=== PATIENT | male | born 1965 | race Caucasian/White ===

== ENCOUNTER 2016-09-29 11:08 | Inpatient (IN) | payer BC ==
[~2016-09-29] VITALS: Ht 170.2 cm; Wt 122.6 kg
[2016-09-29 12:45] LABS: BASOPHIL % 0.5 % (0-2); PLATELET COUNT 241 x10^3mcL (130-400); RED CELL DISTRIBUTION WIDTH 13.6 % (11.5-14.5)
[2016-09-29 12:52] LABS: CALCIUM 8.8 mg/dL (8.5-10.1); CARBON DIOXIDE 27.7 mmol/L (21-32); CHLORIDE SERUM 104 mmol/L (98-107); CREATININE SERUM 0.8 mg/dL (0.7-1.3); GFR1 > 60 mL/min; GLUCOSE SERUM 140 mg/dL (74-106); POTASSIUM SERUM 3.4 mmol/L (3.5-5.1); SODIUM SERUM 141 mmol/L (136-145)
[2016-09-29 13:01] LABS: microscopic required? NO
[2016-09-29 13:06] LABS: ALBUMIN 3.6 g/dL (3.4-5.0); ALKALINE PHOSPHATASE 58 U/L (46-116); ALT/SGPT 44 U/L (16-63); AMYLASE 95 U/L (25-115); AST/SGOT 20 U/L (15-37); BILIRUBIN TOTAL 0.41 mg/dL (0.20-1.00); CHOLESTEROL 148 mg/dL (<200); HDL CHOLESTEROL 42 mg/dL (40-60); LIPASE 879 IU/L (73-393); MAGNESIUM 1.9 mg/dL (1.8-2.4); T4(THYROXINE) 6.5 ug/dL (4.7-13.3); TOTAL PROTEIN, SERUM 7.6 g/dL (6.4-8.2)
[2016-09-29 13:13] LABS: urine erythrocyte NEGATIVE (NEGATIVE)
[2016-09-29 13:31] LABS: AMPHETAMINE QUAL UR NONE DETECTED (NEG <=1000)
[2016-09-29] MEDS ORDERED: PRINIVIL10 MG PO (14:14)
[2016-09-29] MEDS ORDERED: METFORMIN HCL1000 MG PO (14:15)
[2016-09-29 14:39] VITALS: BP 114/73
[2016-09-29 23:50] VITALS: BP 115/70
[2016-09-30 05:43] VITALS: BP 110/63
[2016-09-30 07:09] LABS: BASOPHIL % 0.5 % (0-2); PLATELET COUNT 239 x10^3mcL (130-400); RED CELL DISTRIBUTION WIDTH 13.4 % (11.5-14.5)
[2016-09-30 07:34] LABS: CALCIUM 8.6 mg/dL (8.5-10.1); CARBON DIOXIDE 29.4 mmol/L (21-32); CHLORIDE SERUM 107 mmol/L (98-107); CREATININE SERUM 0.8 mg/dL (0.7-1.3); GFR1 > 60 mL/min; GLUCOSE SERUM 157 mg/dL (74-106); PHOSPHOROUS 3.7 mg/dL (2.5-4.9); POTASSIUM SERUM 4.2 mmol/L (3.5-5.1); SODIUM SERUM 142 mmol/L (136-145)
[2016-09-30 10:30] VITALS: BP 137/83
[2016-09-30 14:00] VITALS: BP 127/79
[2016-09-30 17:35] VITALS: BP 128/81
[2016-09-30 20:45] VITALS: BP 125/70
[2016-10-01 05:16] VITALS: BP 116/69
[2016-10-01 10:50] VITALS: BP 128/89
[2016-10-01 14:00] VITALS: BP 125/73
[2016-10-01] MEDS ORDERED: ASPIR 8181 MG PO (14:47)
[2016-10-01] MEDS ORDERED: SIMVASTATIN10 M1 PO (14:48)
[2016-10-01] MEDS ORDERED: ROBAXIN-750750 MG PO (14:49)
[2016-10-01 15:43] VITALS: BP 125/73
== END 2016-10-01 16:59 | disposition home or self-care (01) | DRG 69 ==
LOC: ED 11:08 → DU 13:59 → MU 09-30 20:18
PROVIDERS: Emergency Medicine; Family Medicine; ADMIT Family Medicine
DX: G45.9 Transient cerebral ischemic attack, unspecified (principal); Z68.41 Body mass index [BMI] 40.0-44.9, adult; I10 Essential (primary) hypertension; E11.65 Type 2 diabetes mellitus with hyperglycemia; E66.01 Morbid (severe) obesity due to excess calories; K59.00 Constipation, unspecified; G90.8 Other disorders of autonomic nervous system; E87.6 Hypokalemia
CPT/HCPCS: 82962; 83880; J7030; Q0092